=== PATIENT | male | born 1925 | race Caucasian/White ===

== ENCOUNTER 2016-04-24 03:16 | Emergency (ER) | payer MEDICARE, BC | END 2016-04-24 05:50 | disposition home or self-care (01) | LOC: ER 03:16 | DX: R00.2 Palpitations (principal); Z79.899 Other long term (current) drug therapy; Z87.891 Personal history of nicotine dependence | CPT/HCPCS: 36415; 71010; 80053; 82550; 83735; 84484; 85025; 85610; 85730; 93005 ==

== ENCOUNTER 2016-04-25 08:20 | Emergency (ER) | payer MEDICARE, BC ==
[2016-04-25] MEDS ORDERED: LORAZEPAM 0.5 MG TAB ONE (08:56)
[2016-04-25] MEDS ORDERED: MORPHINE 4 MG/ML SYR ONE (10:44)
== END 2016-04-25 13:09 | disposition home or self-care (01) ==
LOC: ER 08:20
DX: K59.00 Constipation, unspecified (principal); Z79.899 Other long term (current) drug therapy; Z87.891 Personal history of nicotine dependence
CPT/HCPCS: 74020; 81003; 96372; 99283; J2270